=== PATIENT | female | born 1960 | race Caucasian/White ===

== ENCOUNTER 2018-01-21 09:35 | Day surgery (SDC) | payer BC ==
[~2018-01-21] VITALS: Ht 152.4 cm; Wt 118.2 kg
[2018-01-21] MEDS ORDERED: ALPR.5 PO (09:57)
[2018-01-21] MEDS ORDERED: PRED10 PO (09:57)
[2018-01-21] MEDS ORDERED: TYLE325T PO (09:57)
[2018-01-21] MEDS ORDERED: FLEXGEL TOPICAL (09:57)
[2018-01-21] MEDS ORDERED: LISI-515 PO (09:57)
[2018-01-21] MEDS ORDERED: ADDE10 PO (09:57)
[2018-01-21] MEDS ORDERED: VOLT1GEL16 (09:57)
[2018-01-21] MEDS ORDERED: LEVO.1 PO (09:57)
[2018-01-21] MEDS ORDERED: MELO15TA20 PO (09:57)
[2018-01-21 10:05] VITALS: BP 139/67; PULSE 87; RESP 18; TEMP 98; O2SAT 97
[2018-01-21] MEDS ORDERED: SODIUM CHLOR 0.9% 1000 ML INJ 1,000 ML IV SCH (10:15)
[2018-01-21 10:56] LABS: BICARBONATE 26.2 MEQ/L (21.0-32.0); CALCIUM 8.7 MG/DL (8.5-10.1); CREATININE 0.69 MG/DL (0.50-1.00)
[2018-01-21 11:05] LABS: AUTOMATED NEUTROPHIL # 8.1 TH/MM3 (1.8-7.7); BASOPHIL # 0.1 TH/MM3 (0-0.2); BASOPHIL % 0.5 % (0.0-2.0); EOSINOPHIL # 0.1 TH/MM3 (0-0.4); EOSINOPHIL % 0.6 % (0.0-4.0); HEMATOCRIT 39.7 % (35.0-46.0); LYMPH % 30.6 % (9.0-44.0); LYMPHOCYTE # 4.1 TH/MM3 (1.0-4.8); MEAN CELL VOLUME 88.3 FL (80.0-100.0); MEAN CORPUSCULAR HEMOGLOBIN 31.3 PG (27.0-34.0); MEAN CORPUSCULAR HGB CONC 35.4 % (32.0-36.0); MEAN PLATELET VOLUME 8.5 FL (7.0-11.0); MONO % 8.8 % (0.0-8.0); MONOCYTE # 1.2 TH/MM3 (0-0.9); NEUT % 59.5 % (16.0-70.0); PLATELET COUNT 328 TH/MM3 (150-450); RED BLOOD COUNT 4.49 MIL/MM3 (4.00-5.30); RED CELL DISTRIBUTION WIDTH 13.8 % (11.6-17.2); WHITE BLOOD COUNT 13.5 TH/MM3 (4.0-11.0)
[2018-01-21 11:17] LABS: PROTHROMBIN TIME - PATIENT 9.7 SEC (9.8-11.6)
[2018-01-21 12:25] VITALS: BP 115/55; PULSE 72; PULSE 85; RESP 18; RESP 20; TEMP 97.5; O2SAT 96; O2SAT 99
[2018-01-21 13:09] LABS: TOTAL PROTEIN,CSF 174.3 MG/DL (15.0-45.0)
[2018-01-21 13:47] LABS: CSF HISTIOCYTES 10 %; CSF LYMPHOCYTES 75 %; CSF MONOCYTES 15 %; CSF NEUTROPHILS 0 %; SUPERNATE COLOR TUBE #1 CLEAR (CLEAR)
[2018-01-21 13:48] LABS: RBC TUBE #4 60 /MM3; WBC TUBE #4 16 /MM3 (0-10)
--- NOTE | 2018-01-21 14:39 | RADRPT ---
EXAM DATE/TIME: 01/21/2018 11:17 [place] COMPARISON: No previous studies available for comparison. INDICATIONS : Patient presents with neuropathy in need of lumbar puncture for multiple sclerosis diagnosis. MEDICAL HISTORY : Neuropathy [place] Basal cell carcinoma SURGICAL HISTORY : CTS Basal cell carcinoma removal ENCOUNTER: Initial ACUITY: 2 weeks PAIN SCORE: 0/10 LOCATION: N/A LUMBAR PUNCTURE TIME: 1140 hours FLUORO TIME: 3.3 minutes IMAGE SERIES: 4 ACCESS LEVEL: L2-3 FLUID: 4 cc of clear CSF was collected and sent to the laboratory for analysis. PROCEDURE : 1. Fluoroscopic guided lumbar puncture. The risks, benefits and alternatives to the procedure were explained and verbal and written consent w as obtained. The site was prepped in sterile fashion. Full sterile technique was used, including ca p, mask, sterile gloves and gown and a large sterile sheet. Hand hygiene and 2% chlorhexidine and/or betadine/alcohol prep was utilized per protocol for cutaneous antisepsis. The skin and subcutaneous tissues were infiltrated with local anesthetic solution. With fluoroscopic guidance the lumbar thecal sac was punctured at the level above. The fluid describ ed above was removed without difficulty. The patient tolerated the procedure well and there were no complications. CONCLUSION: Uncomplicated fluoroscopically guided lumbar puncture. Todd Bravo MD on January 21, 2018 at 14:37 Board Certified Radiologist. This report was verified electronically.
[2018-01-24 12:40] LABS: CSF CRYPTOCOCCUS AG CONF ND (NOT DETECTD)
[2018-01-26 23:52] LABS: CSF CRYPTOCOCCUS ANTIGEN NOT DETECTED (NEGATIVE); VDRL CSF NON-REACTIVE (NON-REACTVE)
== END 2018-01-21 13:41 | disposition home or self-care (01) ==
LOC: HROP 09:35 → HRIP 09:38 → HROP 13:41
PROVIDERS: ATTEND Psychiatry & Neurology Neurology
DX: G35 Multiple sclerosis (principal); G62.9 Polyneuropathy, unspecified; I10 Essential (primary) hypertension; Z85.828 Personal history of other malignant neoplasm of skin
CPT/HCPCS: 62270; 77003; 80048; 82945; 84157; 85025; 85610; 85730; 86403; 86592; 86617; 86618; 87015; 87070; 87102; 87116; 87205; 87206; 87476; 89051; J7030; 82040; 82042; 82784; 83873; 83916